=== PATIENT | female | born 1955 | race Caucasian/White ===

== ENCOUNTER 2024-07-24 04:52 | Day surgery (SDC) | payer OTHER, SELFPAY ==
--- NOTE | 2024-07-19 17:26 | PM.IMHP ---
H&P: HPI History of Present Illness Date/Time: 07/19/24 17:26 Chief Complaint: incontinence Narrative: stress incontinence due to intrinsic sphincter deficiency Review of Systems Review of Systems: All systems reviewed & are unremarkable except as noted in HPI and below Exam Narrative: no acute distress normal breathing alert oriented x3 Assessment and Plan Assessment and plan (1) Intrinsic sphincter deficiency (ISD): Code(s): N36.42 - Intrinsic sphincter deficiency (ISD) Status: Acute Assessment and Plan: cystoscopy bulking agent. Understands risks of bleeding, infection, lack of efficacy, retention, need for repeat procedures. Agrees to proceed
[2024-07-21 09:32] VITALS: BMI 46.5
--- NOTE | 2024-07-21 09:56 | PC.NURSE ---
Report to the Outpatient Waiting Room, entrance under the green pavilion located off [facility], at time ___6:00AM____ on date ___07/24/24____. Planned Procedure Time: ___7:30AM .? Time changes happen often and if your time is changed the preop area will call you the afternoon before. - You and your visitor will be asked to self-screen and do not enter if you have any COVID symptoms. Please call surgeon if you need to reschedule. - A mask is optional within the hospital at this time. Patients may have clear liquids (water, carbonated beverages, clear teas, apple juice) until 3 hours prior to surgery with a maximum of 20 ounces. - No food from midnight until time of surgery and no smoking - Infants may have breast milk until 4 hours before surgery, infant formula 6 hours prior to surgery. - Children will be allowed to drink immediately following surgery.? If applicable, please bring a bottle or sippy cup to assist with drinking. Juice, water, soda, and popsicles are readily available.? For infants on formula, please bring formula the day of surgery.? Pacifiers are allowed. Take only the following medications with a SIP of water on the morning of surgery: __BREZTRI INHALER, ACYCLOVIR, ARIPIPRAZOLE, GABAPENTIN, LEVOTHYROXINE. MAY USE ALBUTEROL INHALER AND HYDROCODONE NEEDED. DO NOT STOP ANY OF YOUR OTHER PRESCRIPTION MEDICATIONS PRIOR TO SURGERY EXCEPT THE FOLLOWING Medications to discontinue per physician ____HOLD ALL VITAMINS/SUPPLEMENTS 3 DAYS PRE-OP PER ANESTHESIA Date to take last dose 07/20/24 Please no make-up, nail kenyan, hairspray, perfume, deodorant, or body powder the day of surgery.? No jewelry (including any body piercings) or valuables the day of surgery, leave them at home.? Please take a shower or bath the night before, or the morning of, surgery with an antibacterial soap.? Wear comfortable, loose fitting clothing.? Children are encouraged to wear pajamas. - Jewelry must be removed prior to entering the operating room.? Rings and piercings that are not removed may be cut off. - The hospital will not accept responsibility for valuables.? - Please leave all valuables, including medications, at home the day of surgery. If you are going home after surgery, a licensed electric truck driver must drive you home.? - NO public transportation without another adult if you receive anesthesia. - We recommend that an adult stay with you for 24 hours following discharge. - We also recommend that you do not drive, make important decision, drink alcoholic beverages, or take any drugs that were not prescribed by your health care provider for at least 24 hours after your discharge time. For Pediatric surgeries, we recommend two adults accompany the child home. Follow any additional instructions given to you from your surgeon. Telephone instructions given to ____PATIENT and asked if any additional questions and then verbalized understanding. Patient advised to call surgeon office or pre surgery nurse liaison [phone] if any additional questions.
[2024-07-24 05:55] VITALS: BP 119/72; PULSE 70; RESP 18; TEMP 36.3; O2SAT 100
[2024-07-24] MEDS: LACTATED RINGERS 1,000 ML 30 ML IV CONT (06:20)
[2024-07-24 06:50] VITALS: BMI 45.8
--- NOTE | 2024-07-24 07:13 | WPDANESEPPF ---
Anes - Initial Pre Proc Eval Procedure: Operation Date: 07/24/24 07:30 Proposed Procedures p Cystoscopy with Bulking Agent - Grupo Tejeda MD Date/Time: 07/24/24 07:13 Surgeon: Grupo Tejeda MD Pre Op Diagnosis: Intrinsic Sphincter Deficiency Patient Data Age: 69 Gender: F Height: 1.52 m Weight: 106.5 kg Last Vital Signs Temp 97.3 F L 07/24/24 05:55 Pulse 70 07/24/24 05:55 Resp 18 07/24/24 05:55 BP 119/72 07/24/24 05:55 Pulse Ox 100 07/24/24 05:55 O2 Del Method Room Air 07/24/24 05:55 Allergies Allergy/AdvReac Type Severity Reaction Status Date / Time tramadol [From [facility]] Allergy LIP Verified 07/24/24 07:12 SWELLING Home Medications Medication Instructions Recorded Confirmed Type acyclovir 400 mg tablet 400 mg PO BID 07/21/24 07/24/24 History albuterol sulfate 90 mcg/actuation 2 puff inhalation Q4-6H PRN 07/21/24 07/21/24 History aerosol inhaler Shortness Of Breath Or Wheezing aripiprazole 2 mg tablet 2 mg PO QAM 07/21/24 07/24/24 History budesonide 160 mcg-glycopyr 9 2 inh inhalation BID 07/21/24 07/21/24 History mcg-formot 4.8 mcg/actuation HFA inhaler (Breztri Aerosphere) celecoxib 200 mg capsule 200 mg PO DAILY 07/21/24 07/21/24 History ergocalciferol (vitamin D2) 1,250 1,250 mcg PO WEEKLY 07/21/24 07/24/24 History mcg (50,000 unit) capsule fluticasone propionate 50 2 spray intranasal DAILY PRN Nasal 07/21/24 07/21/24 History mcg/actuation nasal Congestion spray,suspension gabapentin 600 mg tablet 600 mg PO TID 07/21/24 07/24/24 History hydrocodone 5 mg-acetaminophen 325 1 tablet PO Q6-8H PRN Pain 07/21/24 07/24/24 History mg tablet levothyroxine 125 mcg tablet 125 mcg PO QAM 07/21/24 07/24/24 History lidocaine 5 % topical patch 1 patch topical BID 07/21/24 07/21/24 History montelukast 10 mg tablet 10 mg PO HS 07/21/24 07/21/24 History omeprazole 20 mg capsule,delayed 20 mg PO BID 07/21/24 07/21/24 History release paroxetine HCl 40 mg tablet 40 mg PO HS 07/21/24 07/21/24 History phentermine 37.5 mg capsule 37.5 mg PO QAM 07/21/24 07/21/24 History trazodone 100 mg tablet 100 mg PO HS 07/21/24 07/21/24 History Patient hx anesthesia problems: none Family hx anesthesia problems: none Results Review: All pre-operative results and documents have been reviewed as part of the pre-operative evaluation. [facility] Social History Social History Smoking status: Never smoker Living arrangements: alone Spiritual care concerns: No Anes - Eval Final PreProcedure Day of Procedure 07/24/24 07:13 Patient weight: overweight Heart: regular rate and rhythm Lungs: clear to auscultation Airway: Mallampati scale Neurological: alert and oriented Last oral intake: >/= 8 hours ASA classification: II Emergent: no Anesthetic plan: proceed Anesthesia type and monitoring: general GIVS and standard monitoring Results Review: All pre-operative results and documents have been reviewed as part of the pre-operative evaluation. Hypothyroidism. Informed Consent: The patient's anesthetic plan and its attendant risks and benefits were discussed with the patient/family/POA. Questions were solicited and answers provided to the satisfaction of the patient/family/POA.
--- NOTE | 2024-07-24 07:17 | WPDHPUPDATE1 ---
History and Physical Update Update Date/Time: 07/24/24 07:17 History and Physical has been reviewed, including an updated exam of the patient. There are NO changes in the patient's condition. Risks, benefits, and alternatives have been discussed and questions answered. Patient agrees to proceed with procedure.
[2024-07-24] MEDS: ceFAZolin 2 GM/D5W 50 ML 2 GM/50 ML BAG IVPB (07:25)
[2024-07-24 07:50] VITALS: BP 122/48; PULSE 70; RESP 16; O2SAT 100
--- NOTE | 2024-07-24 07:56 | P.OP_ITS ---
Procedure Note - Detailed Date of Procedure 07/24/24 Pre-op Diagnosis Intrinsic Sphincter Deficiency Post-op Diagnosis Same Procedure Performed Cystoscopy with suburethral injection of implant material Surgeon Grupo Tejeda MD Anesthesia MAC and Local (Uro jet) Indications A woman with intrinsic sphincter deficiency desires a procedure. Presents for a bulking agent. Understands risks of bleeding, infection, incomplete efficacy, urinary tension, need for repeat procedures. Agrees to proceed Findings Open urethra consistent with intrinsic sphincter deficiency Description of Procedure She was correctly identified. Informed consent obtained. From the operating room. She was given monitored anesthesia care. She is placed in dorsal lithotomy position. She was prepped draped sterile fashion. Time-out performed. Cystoscopy revealed a normal-appearing bladder without significant abnormalities. Urethra was open consistent with intrinsic sphincter deficiency. I chose a site in the mid urethra 2 cm distal bladder neck. I injected bulking agent circumferentially I used 1 syringe total. There was excellent bulking effect. I left the bladder partially full. She was awakened transferred to [facility] in stable condition Estimated Blood Loss 0 Drains No Packing No Pathology None sent Complications No immediate complications Condition Stable Disposition PACU
[2024-07-24 08:20] VITALS: BP 125/77; PULSE 78; RESP 20
[2024-07-24 08:40] VITALS: BP 125/77; PULSE 100; RESP 20
== END 2024-07-24 08:45 | disposition home or self-care (01) ==
PROVIDERS: PCP Nurse Practitioner Family; Visit Provider Urology
PROC: 3E0K8GC Introduction of Other Therapeutic Substance into Genitourinary Tract, Via Natural or Artificial Opening Endoscopic (ICD-10-PCS; CPT 51715; principal; 2024-07-24 07:30)
DX: N39.3 Stress incontinence (female) (male) (principal); N36.42 Intrinsic sphincter deficiency (ISD); Z79.51 Long term (current) use of inhaled steroids; Z79.891 Long term (current) use of opiate analgesic
CPT/HCPCS: 51715; J0690; J2003; J2405; J2704; J3010; J7120; L8606